=== PATIENT | female | born 1960 | race Caucasian/White ===

== ENCOUNTER 2016-05-23 09:28 | Observation (INO) | payer OTHER ==
[~2016-05-23 09:28] MED LIST: Buffered Lidocaine 1% SYR 3ML* 3 ML/SYR SYRINGE INTRADERM ONE; Buffered Lidocaine 1% SYR 3ML* 3 ML/SYR SYRINGE ONE; Heparin VIAL(*) 5000 UNITS/ML VIAL (FIVE THOUSAND) ONE; NS 0.9% 1000 ML* 1,000 ML IV SCH; ceFAZolin 2 GM PREMIX (*) 2 GM/50 ML BAG IVPB ONE
[2016-05-23] MEDS ORDERED: Midazolam* 1 MG/ML 2 ML VIAL (2 MG) ONE (11:19)
[2016-05-23] MEDS ORDERED: Ondansetron INJ* 2 MG/ML VIAL ONE (12:13)
[2016-05-23] MEDS ORDERED: Ketorolac INJ* 30 MG/ML 1 ML VIAL ONE (12:13)
[2016-05-23] MEDS ORDERED: Famotidine IV* 10 MG/ML 2 ML (20 mg) ONE (12:13)
[2016-05-23] MEDS ORDERED: Dexamethasone IV* 4 MG/ML 1 ML (4 MG) ONE ×2 (12:13→12:45)
[2016-05-23] MEDS ORDERED: Lidocaine 2% MPF* 2 ML VIAL ONE (12:13)
[2016-05-23] MEDS ORDERED: Propofol* 10 MG/ML 20 ML BTL IV PUSH ONE (12:13)
[2016-05-23] MEDS ORDERED: KETAMINE HCL* 50 MG/ML 10 ML VIAL ONE (12:14)
[2016-05-23] MEDS ORDERED: fentaNYL* 50 MCG/ML 2 ML VIAL (100 MCG VIAL) ONE ×3 (12:14→14:34)
[2016-05-23] MEDS ORDERED: HYDROmorphone INJ* 1 MG/ML CARPUJECT SYRINGE IV PRN ×2 (12:38→13:24)
[2016-05-23] MEDS ORDERED: Acetaminophen TAB* 325 MG PO PRN ×2 (12:38→13:24)
[2016-05-23] MEDS ORDERED: DiMENhydriNATE IV* 50 MG/ML VIAL IV PUSH PRN (12:38)
[2016-05-23] MEDS ORDERED: Ondansetron INJ* 2 MG/ML VIAL IV PRN ×2 (12:38→13:24)
[2016-05-23] MEDS ORDERED: Metoclopramide IV* 5 MG/ML 2 ML VIAL ONE (12:45)
[2016-05-23] MEDS ORDERED: HYDROmorphone INJ* 1 MG/ML CARPUJECT SYRINGE ONE (12:49)
[2016-05-23] MEDS ORDERED: oxyCODONE/Acetamin 5/325 MG* TAB PO PRN (13:24)
[2016-05-23] MEDS ORDERED: Ketorolac INJ* 30 MG/ML 1 ML VIAL IM PRN (13:24)
[2016-05-23] MEDS ORDERED: DiMENhydriNATE IV* 50 MG/ML VIAL ONE (13:38)
[2016-05-23] MEDS ORDERED: Heparin VIAL(*) 5000 UNITS/ML VIAL (FIVE THOUSAND) SUBCUT SCH (14:00)
[2016-05-23] MEDS: fentaNYL* 50 MCG/ML 2 ML VIAL (100 MCG VIAL) IV PRN ×4 (14:02→14:39)
[2016-05-23] MEDS: Heparin VIAL(*) 5000 UNITS/ML VIAL (FIVE THOUSAND) SUBCUT SCH (15:58)
[2016-05-23] MEDS: Docusate CAP* 100 MG PO SCH (19:48)
[2016-05-23] MEDS ORDERED: [UNRECOGNIZED DRUG - OTHER] PO SCH (22:30)
[2016-05-23] MEDS ORDERED: [UNRECOGNIZED DRUG - OTHER] PO PRN (22:31)
[2016-05-24] MEDS: POTASSIUM CITRATE PO SCH ×2 (00:10→09:00)
[2016-05-24] MEDS: Heparin VIAL(*) 5000 UNITS/ML VIAL (FIVE THOUSAND) SUBCUT SCH ×2 (00:11→09:00)
--- NOTE | 2016-05-24 01:21 | OP ---
DATE OF OPERATION: 05/23/16 - ROOM #338 DATE OF : 56 SURGEON: Bora Ochoa MD IT INSTRUCTOR: Marcie Villegas NP ANESTHESIOLOGIST: Dr. Gray. ANESTHESIA: General anesthetic. PRE-OP DIAGNOSIS: Left breast carcinoma. POST-OP DIAGNOSIS: Left breast carcinoma. OPERATIVE PROCEDURE: Left mastectomy. DESCRIPTION OF PROCEDURE: The patient was supine in the operating table. After adequate general anesthetic, compression stockings, Frederic Hugger warmer, and intravenous antibiotics, the left breast was prepped with antiseptic, draped in a sterile fashion. The left breast was almost totally infiltrated with tumor and edema and a clear area of skin in the inframammary fold and maybe 8 cm above the areola was chosen for the resection. Large elliptical incision was thus created. It was very vascular due to the inflammation. Inferior and superior flaps were created and the breast taken off in the subfascial plane. In the inferior edge of pectoralis, there was some adherence to the muscle, a little muscle was taken as well. Specimen was marked with the suture laterally and sent in formalin for pathologic evaluation. The inferior and superior flaps were mobilized additionally for additional length and a IGLESIA drain was placed through a lateral stab wound, sutured at the skin with 2-0 Prolene. The adipose and subcutaneum were approximated using 3-0 Vicryl. Note that hemostasis had been obtained using 3-0 Vicryl at various points as well as electrocautery for hemostasis. Once the subcutaneum was reapproximated with 3- 0 Vicryl, skin was closed with surgical clips, followed by a sterile dressing. She was awakened and brought to Recovery in good condition. No complications. Drain was Don Leach. Sponge and instrument counts correct. Estimated blood loss 150 mL. CC: Bora Ochoa MD; Dr. Montelongo; Dr. Garcia * [id number]/[facility] #: [id number] [facility]
[2016-05-24 08:02] VITALS: BP 104/63
[2016-05-24] MEDS: Docusate CAP* 100 MG PO SCH (09:05)
[2016-06-03 10:22] LABS: HER2 Fixative Formalin; HER2 Result Summary Equivocal; HER2 Tissue ID S17-317-D
--- NOTE | 2016-10-16 03:34 | DS ---
CC: Bora Ochoa MD; [facility] * DISCHARGE SUMMARY: DATE OF ADMISSION: 05/23/16 DATE OF DISCHARGE: 05/24/16 PRINCIPAL ADMITTING DIAGNOSIS: Carcinoma of the left breast. OPERATIVE PROCEDURE ON THIS ADMISSION: Left mastectomy. COMPLICATIONS: None. HOSPITAL COURSE: The patient came to the hospital, was taken to the operating room on 05/23/16 where she underwent a left mastectomy. She had placement of a drainage tube. She did well overnight and was discharged the next day, tolerating oral intake. Her pain control is good. She learned to manage the Don-Leach drain and will continue to do so at home and will follow up in the office in the near future to check the drain. Also, she will have discussion with Pathology when that becomes available. [id number]/[id number] #: [id number] MTDD
== END 2016-05-24 14:30 | disposition home or self-care (01) ==
LOC: OR 09:28 → SSU 15:38
PROVIDERS: ADMIT Surgery; ATTEND Surgery
PROC: 0HTU0ZZ Resection of Left Breast, Open Approach (ICD-10-PCS; principal; 2016-05-23 10:45)
DX: C50.912 Malignant neoplasm of unspecified site of left female breast (principal); Z88.5 Allergy status to narcotic agent; Z88.8 Allergy status to other drugs, medicaments and biological substances; Z79.899 Other long term (current) drug therapy
CPT/HCPCS: 88271; 88274; 88307; 88341; 88342; 96361; 96372; 96374; 96375; G0378; J0690; J1100; J1170; J1240; J1644; J1885; J2250; J2405; J2704; J2765; J3010

== ENCOUNTER 2016-08-22 06:27 | Inpatient (IN) | payer OTHER ==
--- NOTE | 2016-08-20 23:03 | HP ---
ADMISSION HISTORY AND PHYSICAL: DATE OF ADMISSION: 08/22/16 ATTENDING PHYSICIAN: Bora Ochoa MD (dictated by SANJAY Bell) CHIEF COMPLAINT: Malignant left pleural effusion; recurrent pericardial effusion. HISTORY OF PRESENT ILLNESS: This is a 55-year-old female with known metastatic breast cancer who in the past month or so had noted increased shortness of breath and was found to have a significant left pleural effusion. She underwent thoracentesis on 08/07/16, which was positive for malignant adenocarcinoma, 1.3 L was drained at that time with some initial improvement. Subsequently she has felt more dyspnea with exertion. She denies lightheadedness or syncope. She also underwent a repeat echocardiogram on 08/01 showing a moderate to large pericardial effusion which had increased from previous study and with evidence of hemodynamic significance (see separate report). The patient had been seen by Dr. Ochoa in the office on 08/13/16. He discussed with her the options for managing both the left pleural effusion and the recurrent pericardial effusion. After review of the indications risks, benefits, and alternatives as well as expected hospital stay, the patient would like to proceed to scheduled with left video- assisted thorascopic surgery with a pericardial window and placement of a PleurX catheter. She also understands the plan for mechanical pleurodesis and the need for inpatient hospital stay for initial chest tube management. PAST MEDICAL HISTORY: Breast cancer (the patient initially diagnosed in 2010 with a positive FNA of a right axillary lymph node as well as probable metastatic disease to cervical and supraclavicular nodes as well as to sternum and to the thoracic spine. She initially sought alternative therapies only, but over the past couple of years, has combined that with conventional chemotherapy including Taxotere, Herceptin, and Perjeta. Most recently she has been maintained on Kadcyla (I believe her last dose was 07/26/16). She has never had any surgery related to the right breast. She did undergo salvage mastectomy on the left in May of this year because of increasing problems with tumor related wound management. Margins were positive from that surgery and she has continued to have significant changes of the left chest wall including pain and likely multiple tumor deposits. She has also had significant left upper extremity edema for a number of years, for which she uses a compression sleeve. Her other past medical history is unremarkable. PAST SURGICAL HISTORY: Previous surgeries include left mastectomy as noted above, previous pericardial window by Dr. Ochoa. Appendectomy for ruptured appendicitis in 2009, subsequent exploratory laparoscopy for lysis of adhesions , bilateral bunionectomy, D and C remotely. CURRENT MEDICATIONS: Taken from list supplied by [facility]. 1. Ascorbic acid 1000 mg 2 tablets daily. 2. Bentonite elements once weekly. 3. Calm Plus Calcium 1 tablespoon daily (electrolyte mix). 4. Cannabis oil at h.s. and p.r.n. 5. Alida's web oil (hemp oil daily p.r.n.). 6. Cholecalciferol every other day. 7. Cod liver oil once daily when she remembers. 8. Coffee enema 2 doses daily. 9. Pancreatic enzymes 1 to 3 capsules t.i.d. 10. Iodine 10 mg daily p.r.n. 11. Liver flush once weekly. 12. Milk thistle 3 capsules b.i.d. 13. Pancreatic enzymes 5 times daily. 14. Potassium citrate 2 to 3 tablets daily 96 mg. 15. Probiotic b.i.d. 16. Salt and soda bath solution p.r.n. 17. Selenium once daily. 18. Thyroid tissue 3 capsules once daily. 19. [place] tail (mushroom supplement) 4 tablets b.i.d. 20. Wellness formula p.r.n. (the patient is instructed to hold supplements for 3 days preoperatively). DRUG ALLERGIES: ANTIHISTAMINES (severe headache and rash), HYDROCODONE ( dizziness), TRAMADOL (dizziness). She has also had some difficulties with anesthesia including both over sedation and nausea. FAMILY HISTORY: Noncontributory. SOCIAL HISTORY: The patient is accompanied by her . She denies use of tobacco. She does use cannabis and drinks a minimal amount of alcohol. REVIEW OF SYSTEMS: General: She complains of gradually increased fatigue and feels that the cancer continues to grow, particularly in her left chest. She states that her weight has been maintained about the same, though with some decreased appetite. Cardiovascular: No chest pain, no palpitations, no lightheadedness or syncope. Respiratory: Some dyspnea with exertion. No cough. GI: No problems reported. : No problems reported. CUSTOMER SUCCESS SPECIALIST: She has not had Pap smears in the last 5 or more years. No interval problems reported. Endocrine: No diabetes or thyroid dysfunction. PHYSICAL EXAMINATION GENERAL: Well nourished and fairly well-appearing female on today's exam. VITAL SIGNS: Height 64.5 inches, weight 126 pounds. Blood pressure 116/78, pulse 76, respirations 16. HEENT: Pupils equal, round, and reactive. EOMs intact. No conjunctival pallor. Oropharynx: Teeth in good repair. No intraoral lesions. NECK: No lymphadenopathy in the cervical or supraclavicular regions. LUNGS: Clear to auscultation in the upper russell. Left side is notable for decreased breath sounds and dullness to percussion in the lower one third to half. BREASTS: She is status post left breast mastectomy. Right breast not examined. HEART: Regular rate and rhythm. No murmur appreciated. ABDOMEN: Soft, nontender to palpation. No palpable masses or organomegaly. GENITALIA: Not done. RECTAL: Not done. EXTREMITIES: She does have moderate edema of the left upper extremity. No edema of the lower extremities. NEUROLOGIC: Grossly intact. SKIN: Generally warm and dry. She does have a generalized erythema over the left chest wall post mastectomy with palpable nodules likely related to tumor deposits. No other suspicious rashes or lesions. IMPRESSION: Malignant left pleural effusion; recurrent pericardial effusion. PLAN: Left VATS with pericardial window; placement of PleurX catheter. SANJAY ELIZABETH CC: Ruby Montelongo MD; [place] [id number]/[facility] #: [id number] [facility]
[~2016-08-22 06:27] MED LIST changes: -Buffered Lidocaine 1% SYR 3ML* 3 ML/SYR SYRINGE INTRADERM ONE; -Buffered Lidocaine 1% SYR 3ML* 3 ML/SYR SYRINGE ONE; +Buffered Lidocaine 1% SYRIN* 3 ML/SYR SYRINGE INTRADERM ONE; +Famotidine TAB* 20 MG PO ONE; -Heparin VIAL(*) 5000 UNITS/ML VIAL (FIVE THOUSAND) ONE; +Morphine INJ* 2 MG/ML 1 ML SYRINGE IV PRN; -NS 0.9% 1000 ML* 1,000 ML IV SCH; +PROCHLORPERAZINE INJ 5 MG/ML 2 ML VIAL IV PRN; -ceFAZolin 2 GM PREMIX (*) 2 GM/50 ML BAG IVPB ONE; +fentaNYL* 50 MCG/ML 2 ML VIAL (100 MCG VIAL) IV PRN
[2016-08-22] MEDS ORDERED: Scopolamine 1.5 mg* PATCH TRANSDERM SCH (06:30)
[2016-08-22] MEDS ORDERED: Scopolamine 1.5 mg* PATCH ONE (07:04)
[2016-08-22] MEDS ORDERED: Heparin VIAL(*) 5000 UNITS/ML VIAL (FIVE THOUSAND) ONE (07:04)
[2016-08-22] MEDS ORDERED: ceFAZolin 2 GM PREMIX(*) 2 GM/50 ML BAG IVPB ONE (07:04)
[2016-08-22] MEDS ORDERED: Famotidine TAB* 20 MG ONE (07:04)
[2016-08-22] MEDS ORDERED: Bupivacaine 0.25% EPI 200,000* 30 ML SDV ONE (07:19)
[2016-08-22] MEDS ORDERED: Lidocaine 1% INJ* 10 MG/ML 30 ML SDV ONE (07:23)
[2016-08-22] MEDS ORDERED: KETAMINE HCL* 50 MG/ML 10 ML VIAL ONE (07:25)
[2016-08-22] MEDS ORDERED: fentaNYL* 50 MCG/ML 5 ML VIAL (250 MCG VIAL) ONE (07:25)
[2016-08-22] MEDS ORDERED: Midazolam* 1 MG/ML 5 ML VIAL (5 MG) ONE (07:25)
[2016-08-22] MEDS ORDERED: Atracurium* 10 MG/ML 10 ML VIAL ONE (07:25)
[2016-08-22] MEDS ORDERED: Dexamethasone IV* 4 MG/ML 1 ML (4 MG) ONE (09:21)
[2016-08-22] MEDS ORDERED: Glycopyrrolate IV* 0.2 MG/ML 1 ML VIAL ONE (09:21)
[2016-08-22] MEDS ORDERED: Ondansetron INJ* 2 MG/ML VIAL ONE (09:21)
[2016-08-22] MEDS ORDERED: Lidocaine 2% PF * 5 ML VIAL ONE (09:21)
[2016-08-22] MEDS ORDERED: EPHEDrine (Pressors)* 50 MG/ML VIAL ONE (09:21)
[2016-08-22] MEDS ORDERED: Phenylephrine INJ* 10 MG/ML 1 ML VIAL (10 MG) ONE (09:21)
[2016-08-22] MEDS ORDERED: Flumazenil* 0.1 MG/ML 5 ML MDV ONE (10:08)
[2016-08-22] MEDS ORDERED: HYDROcodone/ACETAMIN 5-325 MG* 1 TAB PO PRN (10:18)
[2016-08-22] MEDS ORDERED: HYDROmorphone* 1 MG/ML 1 ML SYR IV PRN (10:18)
--- NOTE | 2016-08-22 11:13 | RAD ---
Indication: History of LEFT breast carcinoma. Post LEFT thoracentesis August 07, 2016. Assess pleural effusion. Comparison: August 12, 2016 chest radiograph and August 07, 2016 PET/CT. Technique: Upright AP 1030 hours Report: Moderate RIGHT and small LEFT predominant subpulmonic pleural effusions. Interval increase on the RIGHT and decreased on the LEFT compared with the August 12, 2016 exam. On the RIGHT there is suggestion of extension of pleural fluid into the major fissure. 2 LEFT chest tubes in place with the tips at the apex. No significant pneumothorax evident. Opacity at the RIGHT mid to lower lung zone new compared with the prior exam representing compressive atelectasis however inflammatory infiltrate is not excluded. Enlarged cardio paracardial silhouette without significant interval change with previous PET/CT documenting pericardial effusion. Unremarkable central pulmonary vasculature. Tip of RIGHT chest port at level of the superior vena cava. IMPRESSION: 1. Interval decrease in LEFT pleural fluid. 2. Interval increase in RIGHT pleural fluid. 3. Opacity at the RIGHT mid to lower lung zone new compared with the prior exam representing compressive atelectasis however inflammatory infiltrate is not excluded. 4. Persistent stigmata of pericardial effusion.
[2016-08-22] MEDS: Heparin VIAL(*) 5000 UNITS/ML VIAL (FIVE THOUSAND) SUBCUT SCH ×2 (12:54→22:35)
[2016-08-22] MEDS: Ketorolac INJ* 30 MG/ML 1 ML VIAL IV SCH ×3 (12:54→22:40)
[2016-08-22] MEDS: Ondansetron INJ* 2 MG/ML VIAL IV PRN ×3 (13:04→20:50)
--- NOTE | 2016-08-22 14:18 | CONSULT ---
Subjective Date of Service: 08/22/16 Interval History: Admission Date: 08/22/16 Provider: Bora Ochoa MD PMD: Dr. Montelongo CHIEF COMPLAINT: Malignant left pleural effusion; recurrent pericardial effusion. Reason for consult: Post-pericardial window HISTORY OF PRESENT ILLNESS: Rochelle Servin is a 55-year-old woman with known metastatic breast cancer, history of pericardial window with recurrent pericardial effusion has noted increased dyspnea and chest tightness over last month. TTE 08/01/2016 showed moderate- large pericardial effusion with high level echocardiographic evidence of hemodynamic significance and a new left pleural effusion. She underwent thoracentesis on 08/07/16, which was positive for malignant adenocarcinoma, 1.3 L was drained at that time with some initial improvement although dyspnea returned. No syncope or palpitations. Has chest pain related to malignancy. Patient is now s/p VATS left sided earlier today with pericardectomy d/w Dr Ochoa removed 400 cc of fluid, pathology has returned as metastatic adenocarcinoma. PAST MEDICAL HISTORY: Metastatic breast cancer PAST SURGICAL HISTORY: Previous surgeries include left mastectomy previous pericardial window by Dr. Ochoa. appendectomy for ruptured appendicitis in 2008, subsequent exploratory laparoscopy for lysis of adhesions, CURRENT MEDICATIONS: 1. Ascorbic acid 1000 mg 2 tablets daily. 2. Bentonite elements once weekly. 3. Calm Plus Calcium 1 tablespoon daily (electrolyte mix). 4. Cannabis oil at h.s. and p.r.n. 5. Alida's web oil (hemp oil daily p.r.n.). 6. Cholecalciferol every other day. 7. Cod liver oil once daily when she remembers. 8. Coffee enema 2 doses daily. 9. Pancreatic enzymes 1 to 3 capsules t.i.d. 10. Iodine 10 mg daily p.r.n. 11. Liver flush once weekly. 12. Milk thistle 3 capsules b.i.d. 13. Pancreatic enzymes 5 times daily. 14. Potassium citrate 2 to 3 tablets daily 96 mg. 15. Probiotic b.i.d. 16. Salt and soda bath solution p.r.n. 17. Selenium once daily. 18. Thyroid tissue 3 capsules once daily. 19. [place] tail (mushroom supplement) 4 tablets b.i.d. 20. Wellness formula p.r.n. (the patient is instructed to hold supplements for 3 days preoperatively). DRUG ALLERGIES: ANTIHISTAMINES (severe headache and rash), HYDROCODONE ( dizziness), TRAMADOL (dizziness). She has also had some difficulties with anesthesia including both over sedation and nausea. FAMILY HISTORY: Noncontributory. SOCIAL HISTORY: The patient is accompanied by her . She denies use of tobacco. She does use cannabis and drinks a minimal amount of alcohol. Medications Active Medications: Hydrocodone Bitart/Acetaminophen ([place] 5-325 Tab*) 1 tab PO Q4H PRN PRN Reason: PAIN - MODERATE Docusate Sodium (Colace Cap*) 100 mg PO BID [facility] Heparin Sodium (Porcine) (Heparin Vial(*)) 5,000 units SUBCUT Q8HR [facility] Last Admin: 08/22/16 12:54 Dose: 5,000 units Hydromorphone HCl (Dilaudid Iv*) 0.5 mg IV Q1H PRN PRN Reason: PAIN - SEVERE Lactated Ringer's (Lactated Ringers 1000 Ml Bag*) 1,000 mls @ 75 mls/hr IV .per rate [facility] Last Admin: 08/22/16 12:43 Dose: 75 mls/hr Ketorolac Tromethamine (Toradol Inj*) 30 mg IV Q6H [facility] Stop: 08/24/16 10:21 Last Admin: 08/22/16 12:54 Dose: 30 mg Non-Formulary Medication (Thyroid Tab (Nf)) 90 mg PO QAM [facility] Ondansetron HCl (Zofran Inj*) 4 mg IV Q4H PRN PRN Reason: NAUSEA/VOMITING Last Admin: 08/22/16 13:04 Dose: 4 mg Pharmacy Profile Note (Scopolomine Patch Remove*) 1 note PATCH OFF 0630 ONE Stop: 08/24/16 06:31 Scopolamine (Transderm-Scop 1.5 Mg Patch*) 1 patch TRANSDERM Q72H [facility] Stop: 08/24/16 06:30 Last Admin: 08/22/16 07:40 Dose: 1 patch Home Medications: Ascorbic Acid TAB* [Vitamin C TAB*] 2,000 mg PO SEE INSTRUCTIONS 01/27/13 [ History Confirmed 08/22/16] Selenium 200 mcg PO QAM 01/27/13 [History Confirmed 08/22/16] Cod Liver Oil 5000-500 Unit/5Ml 0.5 teasp PO SEE INSTRUCTIONS 09/06/13 [History Confirmed 08/22/16] Enema 1 bag AR DAILY 09/06/13 [History Confirmed 08/22/16] Digestive Enzymes [Digestive Enzyme] 1 cap PO SEE INSTRUCTIONS 09/09/14 [ History Confirmed 08/22/16] Iodine Strong (Lugol's) (Bulk) [Iodine Strong] 1 luan XX DAILY 09/09/14 [History Confirmed 08/22/16] Milk Thistle (Silybum Marianum [Milk Thistle] 3 cap PO BID 09/09/14 [History Confirmed 08/22/16] Probiotic Product [Acidophilus] 1 cap PO BID 09/09/14 [History Confirmed ] Thyroid TAB (NF) [Thyroid TAB 90 MG(NF)] 90 mg PO QAM 09/09/14 [History Confirmed 08/22/16] Potassium Citrate ER 2 - 3 tab PO BID 08/06/16 [History Confirmed 08/22/16] Calcium 500+D 500-200 mg-Unit 2 cap PO QPM 08/20/16 [History Confirmed 08/22/16] Calcium Magnesium Powder 1 teasp PO QPM 08/20/16 [History] Cannabis Oil 08/20/16 [History] Hemp Oil 1 ml PO SEE INSTRUCTIONS 08/20/16 [History] [place] Tail Mushroom 4 cap PO BID 08/20/16 [History] Review of Systems - Measurements Intake and Output: Intake and Output Last 24 Hours 08/20/16 08/21/16 08/22/16 08/23/16 06:59 06:59 06:59 06:59 Intake Total 2000 Output Total 85 Balance 191 Weight 126 lb 125 lb 3.561 oz Intake: IV Fluids 1999 LR 2000 Output: Chest Tube #1 85 - Review of Systems Review of Systems Statement: Patient seen in post-operative state in ICU 2 and is still under the effect of anesthesia and is unable to provide a full ROS. She states her pain is controlled, not currently nauseated and breathing ok. Objective Vital Signs: Temp Pulse Resp BP Pulse Ox 97.1 F 85 17 109/54 96 08/22/16 11:15 08/22/16 12:15 08/22/16 12:15 08/22/16 12:15 08/22/16 12:15 Appearance: frail, debilitated Ears/Nose/Mouth/Throat: Clear Oropharnyx Neck: NL Appearance and Movements; NL JVP, Trachea Midline Respiratory: - - poor inspiratory effect, left surgical wound intact, no abnormal breath sounds Cardiovascular: - - RRR, very loud pericardial friction rub Abdominal: NL Sounds; No Tenderness; No Distention Extremities: No Clubbing, Cyanosis, - - left upper extremity edema Neurological: Alert and Oriented x 3 Assessment/Plan Rochelle Servin is a 55 year old woman with advanced breast cancer, prior substernal pericardial window s/p surgery earlier today left VATS/ pericardiectomy for malignant pleural effusion/recurrent tamponade pathology from pericardial fluid also consistent with metastatic adenocarcinoma. - She has a very loud pericardial friction rub on exam, agree with around the clock regularly scheduled NSAIDs/toradol - Will arrange limited TTE for tomorrow to re-evaluate pericardial space Thank you for allowing me to participate in the cardiovascular care of this patient. Please do not hesitate to contact me with questions or concerns.
[2016-08-22] MEDS: Docusate CAP* 100 MG PO SCH (22:25)
--- NOTE | 2016-08-23 03:35 | OP ---
DATE OF OPERATION: 08/22/16 - ROOM #ICU-02 DATE OF : 56 SURGEON: Bora Ochoa MD ANESTHESIOLOGIST: Dr. La. ANESTHESIA: General anesthetic, local infiltration. PREOPERATIVE DIAGNOSIS: Malignant pleural effusion with pericardial effusion secondary to breast carcinoma. POSTOPERATIVE DIAGNOSIS: Malignant pleural effusion with pericardial effusion secondary to breast carcinoma. OPERATIVE PROCEDURE: Left video thoracoscopy with pericardial window and pleurodesis and placement of PleurX catheter. DESCRIPTION OF PROCEDURE: The patient was supine on the operative table. After adequate general anesthetic, compression stockings, Frederic Hugger warmer and intravenous antibiotics, she was placed in the lateral decubitus position on the rosado bag with axillary roll and pressure points appropriately padded and protected and she was secured to the table. Double lumen intubation was checked with the scope and showed good positioning. The left chest was prepped with antiseptic and draped in a sterile fashion. Local infiltrative anesthesia was administered and approximately 1.5 cm incision was created and Thoracoport was placed. Inspection revealed pleural fluid, approximately 1200 mL suctioned out. Additional cannulae, a 5 mm posterior to this and superior to this were placed under vision through small stab wounds. The incisions were somewhat posterior due to the location of the skin tumor. The pericardium was identified and an endoscopic needle was used to drain 20 mL of bloody fluid from the pericardium. This was sent for cytology. The pericardium was picked up and incised and scissors used to take approximately 3 x 5 cm piece of pericardium. This was sent for pathologic evaluation. Irrigation and suctioning carried out in the pleural space. Mechanical pleurodesis was carried out using a 4 x 4 gauze which was retrieved afterwards. A 28-Austrian chest tube was placed through the larger incision and positioned towards the apex and sutured at the skin. A PleurX catheter was placed to the posterior incision and tunneled out through a separate incision and also directed up into the chest cavity. This was confirmed under visualization and closure of the incision was accomplished using 5- 0 Vicryl followed by Steri-Strips. 3-0 Prolene was used for PleurX exit site, followed by bulky gauze dressing. She was attached to the Pleur-Evac. Awakened and brought to Recovery in good condition. No complications. Drains were PleurX and 20-Austrian chest tubes. Sponge and instrument counts correct. Estimated blood loss less than 100 mL. CC: Dr. Ruby Montelongo; Dr. Josef Garcia* [id number]/[facility] #: [id number] [facility]
[2016-08-23] MEDS: Ketorolac INJ* 30 MG/ML 1 ML VIAL IV SCH ×4 (05:48→22:32)
[2016-08-23] MEDS: Heparin VIAL(*) 5000 UNITS/ML VIAL (FIVE THOUSAND) SUBCUT SCH ×3 (05:49→22:31)
[2016-08-23] MEDS: Ondansetron INJ* 2 MG/ML VIAL IV PRN (05:49)
[2016-08-23] MEDS: Docusate CAP* 100 MG PO SCH ×2 (10:15→22:30)
[2016-08-23] MEDS: [UNRECOGNIZED DRUG - OTHER] PO SCH (10:17)
--- NOTE | 2016-08-23 11:37 | ECHO ---
Patient: CANDELARIA BRICENO [facility] Rec#: [id number] : 1960 Date: 08/23/2016 Age: 55y Height: 162.56 cm / 64.0 in Weight: 57.61 kg / 127.0 lbs Sex: F BSA: 1.61 Room#: ICU-2 Admit Date#: 08/22/2016 Type: Inpatient Referring: Mike Leger DO Reading: Mike Leger DO Roving Court Reporter: Janet Kowalski Roving Court Reporter: Rosalina Caraballo RN RDCS CC: Ruby Montelongo MD Transthoracic Echocardiogram Indication: Pericardial Effusion BP: 113/64 HR: 87 Rhythm: NSR Findings History: Metastatic breast cancer, left mastectomy, thoracentesis 08/07/16 with positive malignant adenocarcinoma, s/p left VATS/ pericardiectomy, recurrent tamponade pathology. This is a LIMITED study to evaluate pericardial effusion. Technical Comments: The study was technically limited due to the patient's inability to lay in the left lateral decubitus position. Apical imaging limited by surgical dressing. Completed at 1042. Left Ventricle: There is normal left ventricular systolic function. The estimated ejection fraction is 60-65%. 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 Right Ventricle: The right ventricle is slightly dilated. The right ventricular global systolic function is mildly reduced. Tricuspid Valve: The tricuspid valve leaflets are normal. There is mild to moderate tricuspid regurgitation. There is evidence of mild pulmonary hypertension. Pericardium: There are no signs of significant hemodynamic compromise. The pericardial effusion is seen adjacent to the right ventricle. Venous: The inferior vena cava is dilated. There is less than 50% respiratory change in the inferior vena cava dimension. Conclusions There is normal left ventricular systolic function. The estimated ejection fraction is 60-65%. 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 The right ventricular global systolic function is mildly reduced. There is residual small sized pericardial space thickening especially adjacent to the right ventricle. Compared to prior study from 08/01/2016, the large pericardial effusion is no longer appreciated Measurements Name Value Normal Range MV E-wave Vmax 0.7 m/sec - MV deceleration time 194 msec - MV A-wave Vmax 0.5 m/sec - MV E:A ratio 1.4 ratio - Name Value Normal Range TR Vmax 2.3 m/sec - TR peak gradient 21 mmHg - RAP 15 mmHg - RVSP 36 mmHg - IVC diameter 2.4 cm -
--- NOTE | 2016-08-23 13:47 | PN ---
Subjective Date of Service: 08/23/16 Interval History: 08/23/16 f/u tamponade, pericardial window Patient feels better today. Pain controlled, no dyspnea Limited TTE this AM with pericardial space thickening, no recurrent effusion No rub today Chest tube in place Medications Active Medications: Hydrocodone Bitart/Acetaminophen (Viburnum 5-325 Tab*) 1 tab PO Q4H PRN PRN Reason: PAIN - MODERATE Docusate Sodium (Colace Cap*) 100 mg PO BID [facility] Last Admin: 08/23/16 10:15 Dose: 100 mg Heparin Sodium (Porcine) (Heparin Vial(*)) 5,000 units SUBCUT Q8HR [facility] Last Admin: 08/23/16 05:49 Dose: 5,000 units Hydromorphone HCl (Dilaudid Iv*) 0.5 mg IV Q1H PRN PRN Reason: PAIN - SEVERE Lactated Ringer's (Lactated Ringers 1000 Ml Bag*) 1,000 mls @ 75 mls/hr IV .per rate [facility] Last Admin: 08/22/16 20:29 Dose: 75 mls/hr Ketorolac Tromethamine (Toradol Inj*) 30 mg IV Q6H [facility] Stop: 08/24/16 10:21 Last Admin: 08/23/16 11:35 Dose: 30 mg Pto: Thyroid With Liver 500mg [30mg Of Raw Thyroid Base] 3 dose PO QAM [facility] Last Admin: 08/23/16 10:17 Dose: Not Given Ondansetron HCl (Zofran Inj*) 4 mg IV Q4H PRN PRN Reason: NAUSEA/VOMITING Last Admin: 08/23/16 05:49 Dose: 4 mg Pharmacy Profile Note (Scopolomine Patch Remove*) 1 note PATCH OFF 0630 ONE Stop: 08/24/16 06:31 Scopolamine (Transderm-Scop 1.5 Mg Patch*) 1 patch TRANSDERM Q72H [facility] Stop: 08/24/16 06:30 Last Admin: 08/22/16 07:40 Dose: 1 patch Objective Vital Signs: Temp Pulse Resp BP Pulse Ox 98.6 F 85 19 103/55 95 08/23/16 12:00 08/23/16 12:00 08/23/16 12:00 08/23/16 03:22 08/23/16 12:00 Appearance: frail, debilitated, pleasant Ears/Nose/Mouth/Throat: Clear Oropharnyx Neck: NL Appearance and Movements; NL JVP, Trachea Midline Respiratory: Symmetrical Chest Expansion and Respiratory Effort, - Cardiovascular: - - RRR, no rub heard today Abdominal: NL Sounds; No Tenderness; No Distention Extremities: No Clubbing, Cyanosis, - - left upper extremity edema Neurological: Alert and Oriented x 3 Assessment/Plan Rochelle Servin is a 55 year old woman with advanced breast cancer, prior substernal pericardial window s/p surgery earlier today left VATS/ pericardiectomy for malignant pleural effusion/recurrent tamponade pathology from pericardial fluid also consistent with metastatic adenocarcinoma. Has chest tube, plan for terminologist to drain lung and pericardial space via pleural space. Limited TTE post-op 08/23/2016 no recurrence of significant pericardial fluid. - Would keep NSAID's empirically as part of regimen at least short term if no contraindication (i.e. after current toradol regimen completed do ibuprofen 600 mg PO BID x 1 week then 600 mg daily for a week or similar arrangement with other nsaid's). I do not think she would benefit from colchicine or steroids. - Ok to transfer to [facility] Thank you for allowing me to participate in the cardiovascular care of this patient. Please do not hesitate to contact cardiology service with questions or concerns.
[2016-08-24] MEDS: Ketorolac INJ* 30 MG/ML 1 ML VIAL IV SCH (06:19)
[2016-08-24] MEDS: Heparin VIAL(*) 5000 UNITS/ML VIAL (FIVE THOUSAND) SUBCUT SCH ×3 (06:22→22:39)
[2016-08-24] MEDS ORDERED: Scopolomine PATCH Remove* 1 NOTE MISC PATCH OFF ONE (06:30)
[2016-08-24] MEDS: Docusate CAP* 100 MG PO SCH ×2 (09:18→22:38)
[2016-08-24] MEDS: [UNRECOGNIZED DRUG - OTHER] PO SCH (09:18)
--- NOTE | 2016-08-24 10:48 | RAD ---
HISTORY: Status post VATS COMPARISONS: August 22, 2016 VIEWS: 2: Frontal dual-energy and lateral views of the chest. FINDINGS: CARDIOMEDIASTINAL SILHOUETTE: The cardiomediastinal silhouette is normal. BILLY: The billy are normal. PLEURA: There is a small right pleural effusion. 2 left-sided chest tubes are noted. There is no appreciable pneumothorax. LUNG PARENCHYMA: There is patchy alveolar opacification of left midlung. ABDOMEN: The upper abdomen is clear. There is no subphrenic gas. BONES AND SOFT TISSUES: No bone or soft tissue abnormalities are noted. OTHER: A right-sided chest port is noted from a subclavian with the tip overlying the superior vena cava. IMPRESSION: 1. LEFT-SIDED CHEST TUBES. NO APPRECIABLE PNEUMOTHORAX. 2. SMALL RIGHT PLEURAL EFFUSION. 3. PATCHY AIRSPACE DISEASE OF THE LEFT LUNG
[2016-08-24] MEDS ORDERED: Ibuprofen TAB* 600 MG ONE (16:16)
[2016-08-24] MEDS ORDERED: Acetaminophen TAB* 325 MG PO PRN (16:33)
[2016-08-24] MEDS: Ibuprofen TAB* 600 MG PO PRN (22:38)
[2016-08-25] MEDS: Heparin VIAL(*) 5000 UNITS/ML VIAL (FIVE THOUSAND) SUBCUT SCH ×3 (05:37→21:10)
[2016-08-25] MEDS: Docusate CAP* 100 MG PO SCH ×2 (08:36→19:59)
[2016-08-25] MEDS: Ibuprofen TAB* 600 MG PO PRN ×2 (08:36→19:59)
[2016-08-25] MEDS: [UNRECOGNIZED DRUG - OTHER] PO SCH (08:37)
[2016-08-26] MEDS: Ibuprofen TAB* 600 MG PO PRN (06:15)
[2016-08-26] MEDS: Heparin VIAL(*) 5000 UNITS/ML VIAL (FIVE THOUSAND) SUBCUT SCH (06:15)
[2016-08-26] MEDS: [UNRECOGNIZED DRUG - OTHER] PO SCH (08:47)
[2016-08-26] MEDS: Docusate CAP* 100 MG PO SCH (08:47)
[2016-08-26 12:09] VITALS: BP 104/78
--- NOTE | 2016-08-27 01:05 | DS ---
CC: Bora Ochoa MD; [facility]; Ruby Montelongo MD; Mike Leger DO DISCHARGE SUMMARY: DATE OF ADMISSION: 08/22/16, with surgery the same day. DATE OF DISCHARGE: 08/26/16 PRINCIPAL ADMITTING DIAGNOSIS: Metastatic breast carcinoma with pleural and pericardial effusions. OPERATIVE PROCEDURE ON THIS ADMISSION: Left video thoracoscopy with pericardial window and aircraft ordnance systems mechanic al pleurodesis. COMPLICATIONS: None. HOSPITAL COURSE: The patient is a 55-year-old with known metastatic breast carcinoma with malignant pleural and pericardial effusion, taken to the operating room on 08/22/16,where she underwent left video thoracoscopy with creation of pleural and pericardial window and mechanical pleurodesis. She had an uneventful postoperative recovery with gradual improvement in pain control and in respiratory function. The chest tube drainage decreased very nicely and the chest tube was ultimately removed on postop day 4. The PleurX catheter remained in place and was patent. The chest tube dressing juan uld remain in place for 48 hours and I did instruct her of this. I did talk to [facility] and they will see her in the office in the next 2 days for PleurX training and the patient has been maintaining her pain relief with ibuprofen and will not need anything stronger than that for pain at home, so she is discharged home with instructions and will follow up in our o ffice in about a week. [id number]/[facility] #: [id number]
== END 2016-08-26 14:30 | disposition home or self-care (01) | DRG 121 ==
LOC: AA 06:27 → ICU 11:50 → SSU 08-23 16:30
PROVIDERS: ADMIT Surgery; ATTEND Surgery
PROC: 0W9D4ZZ Drainage of Pericardial Cavity, Percutaneous Endoscopic Approach (ICD-10-PCS; 2016-08-22)
PROC: 0W9 Anatomical Regions, General, Drainage (ICD-10-PCS; 2016-08-22)
PROC: 0B5P4ZZ Destruction of Left Pleura, Percutaneous Endoscopic Approach (ICD-10-PCS; principal; 2016-08-22 07:45)
PROC: 0W9B30Z Drainage of Left Pleural Cavity with Drainage Device, Percutaneous Approach (ICD-10-PCS; 2016-08-22 07:45)
PROC: 0W9B30Z Drainage of Left Pleural Cavity with Drainage Device, Percutaneous Approach (ICD-10-PCS; 2016-08-22 07:45)
DX: C78.2 Secondary malignant neoplasm of pleura (principal); C79.89 Secondary malignant neoplasm of other specified sites; J91.0 Malignant pleural effusion; I31.3 Pericardial effusion (noninflammatory); C50.912 Malignant neoplasm of unspecified site of left female breast; Z88.6 Allergy status to analgesic agent; Z88.8 Allergy status to other drugs, medicaments and biological substances; Z87.891 Personal history of nicotine dependence
CPT/HCPCS: 71010; 71020; 87641; 88112; 88304; 88305; 88341; 88342; 93005; 93308; 94760; A9270-GY; J0690; J1100; J1644; J1885; J2001; J2250; J2405; J3010

== ENCOUNTER 2016-09-15 08:13 | Emergency (ER) | payer OTHER ==
[2016-09-15 08:23] VITALS: BP 120/78
[2016-09-15 09:34] LABS: Hematocrit 40 % (35-47); Hemoglobin 13.2 g/dl (12.0-16.0); Mean Corpuscular HGB Conc 33 g/dl (31-36); Mean Corpuscular Hemoglobin 26 pg (27-31); Mean Corpuscular Volume 81 fL (80-97); Mean Platelet Volume 7 um3 (7.4-10.4); Red Cell Distribution Width 18 % (10.5-15); White Blood Count 10.1 10^3/ul (3.5-10.8)
[2016-09-15 09:48] LABS: Albumin 3.4 g/dL (3.2-5.2); BUN/Creatinine Ratio 12.9 (8-20); Calcium 9.2 mg/dL (8.6-10.3); EGFR African American 127.6 (>60); EGFR Non-African American 99.2 (>60); Globulin 3.2 g/dL (2-4); Magnesium 1.7 mg/dL (1.9-2.7); Potassium 3.8 mmol/L (3.5-5.0); Total Bilirubin 0.7 mg/dL (0.2-1.0); Total Protein 6.6 g/dL (6.4-8.9)
--- NOTE | 2016-09-15 12:51 | ED ---
I, Oh,Soohyun, scribed for Lake Barton MD on 09/15/16 at 0845 . HPI Chest Pain - HPI Summary HPI Summary: This 55 y/o female presents to ED for gradually worsening chest pressure since 6 days ago. PMHx is significant for breast CA mets to lymphatic and T-spine, pericardial effusion and pleural effusion with pericardium window and chest port in place. Pt has last drainage 6 days ago and another pending drainage tomorrow, but decided to visit ED today when she became concerned with chest pain. Lying down and deep breath make the pain worse. Pt states the pain is similar to what she felt just prior to drainage last week. Pt is currently on compazine and Zofran 4 mg. R/b/a of pain medications and CXR are discussed. Plan of care is discussed, but pt is reluctant to have CXR or pain medications due to her n/v with - History of Current Complaint Chief Complaint: EDChestWallPain Time Seen by Provider: 09/15/16 08:27 Hx Obtained From: Patient, Family/Town Clerk, Medical Records Timing: Constant Pain Intensity: 9 Pain Scale Used: 0-10 Numeric Chest Pain Location: Diffuse Chest Pain Radiates: No Character: Pressure/Squeezing Aggravating Factor(s): Deep Breaths, Recumbent Position Alleviating Factor(s): Position - upright Associated Signs and Symptoms: Positive: Chest Pain. Negative: Shortness of Breath, Fever - Additional Pertinent History Primary Care Physician: [id number] - Allergy/Home Medications Allergies/Adverse Reactions: Allergies Allergy/AdvReac Type Severity Reaction Status Date / Time Antihistamines, Allergy Severe Rash Verified 08/22/16 07:12 Diphenhydramine-typ Tramadol AdvReac Intermediate Vomiting Verified 08/22/16 07:12 narcotics AdvReac Intermediate Nausea And Uncoded 08/22/16 07:12 Vomiting PMH/Surg Hx/FS Hx/Imm Hx Endocrine/Hematology History: Reports: Hx Thyroid Disease - STATES BLOOD WORK SHOWS SLIGHTLY OFF, TAKES OTC SUPPLEMENT Denies: Hx Diabetes Cardiovascular History: Reports: Other Cardiovascular Problems/Disorders - PERICARDIUM WINDOW: TO DRAIN EXCESS FLUID Denies: Hx Hypertension, Hx Pacemaker/ICD Respiratory History: Comment Only: Other Respiratory Problems/Disorders - FLUID REMOVED FROM LEFT LUNG X2 WEEKS AGO GI History: Reports: Hx Irritable Bowel - FEELS SHE HAS IBS, HAS NOT BEEN DX BY A PHYSICIAN, Other GI Disorders - DOES COFFEE ENEMAS DAILY, appedectomy History: Reports: Other Problems/Disorders - many UTI's Denies: Hx Renal Disease - ONE KIDNEY IS SMALLER THAN THE OTHER Musculoskeletal History: Reports: Hx Arthritis, Other Musculoskeletal History - USES LOTS OF SUPPLEMENTS TO PREVENT CRAMPING OF MUSCLES Sensory History: Denies: Hx Cataracts, Hx Contacts or Glasses, Hx Glaucoma, Hx Hearing Aid Opthamlomology History: Denies: Hx Cataracts, Hx Contacts or Glasses, Hx Glaucoma Neurological History: Reports: Hx Headaches - R/T CAFF[place], Hx Migraine - CAUSED BY ANTIHYSTAMINES, Other Neuro Impairments/Disorders - neuropathy, FINGERS/FEET Psychiatric History: Reports: Hx Anxiety - SITUATIONAL, Hx Depression Denies: Hx Panic Disorder - Cancer History Cancer Type, Location and Year: Stage 4 Breast cancer - 03/2011- under treatment with Dr Radha Daly Chemotherapy: Yes Hx Radiation Therapy: No - Surgical History Surgery Procedure, Year, and Place: 2008 RUPTURED Appendectomy [facility] [place]. 2011 POWER PORT RT SIDE [facility] [place]. 2012 EXPLORATORY FOR PAIN AFTER APPY [facility] [place]. 1979 BUNIONECTOMY [place]. LEFT KNEE ATHROSCOPY. D&C,. RT BREAST WOUND ,. 2014 PERICARDIAL WINDOW TO PERITONIUM Hx Anesthesia Reactions: Yes - ALWAYS GET N&V, DIZZY Infectious Disease History: No Infectious Disease History: Denies: Hx of Known/Suspected MRSA, History Other Infectious Disease, Traveled Outside the in Last 30 Days - Family History Known Family History: Negative: Other - negative malignant hyperthermia or adverse anesthesia reaction - Social History Alcohol Use: Occasionally Substance Use Type: Reports: Marijuana Substance Use Comment - Amount & Last Used: MOST NIGHTS SMOKES MARIJANA TO RELIEVE PAIN, WILL REFRAIN 2-3 NIGHTS PREOP Hx Tobacco Use: Yes Smoking Status (MU): Former Smoker Type: Cigarettes Amount Used/How Often: 1979 2 YRS 1PPD Length of Time of Smoking/Using Tobacco: 3 years Have You Smoked in the Last Year: No Review of Systems Negative: Fever Positive: Chest Pain Negative: Shortness Of Breath Positive: Nausea Positive: Rash - secondary to fentanyl patch per pt All Other Systems Reviewed And Are Negative: Yes Physical Exam - Summary Physical Exam Summary: The patient is well-nourished in no acute distress and in no acute pain. The skin is warm and dry and skin color reflects adequate perfusion. Erythema across left anterior chest. S/P left lumpectomy. HEENT: The head is normocephalic and atraumatic. The pupils are equal and reactive. The conjunctivae are clear and without drainage. Nares are patent and without drainage. Mouth reveals moist mucous membranes and the throat is without erythema and exudate. The external ears are intact. The ear canals are patent and without drainage. The tympanic membranes are intact. Neck is supple with full range of motion and non-tender. There are no carotid bruits. There is no neck vein distension. Respiratory: Chest is non-tender. Lungs are clear to auscultation and breath sounds are decreased. Cardiovascular: Hear is regular rate and rhythm. There is no murmur or rub auscultated. There is no peripheral edema and pulses are symmetrical and equal. Abdomen: The abdomen is soft and non-tender. There are normal bowel sounds heard in all four quadrants and there is no organomegaly palpated. Musculoskeletal: There is no back pain noted. Extremities are non-tender with full range of motion. There is good capillary refill. There is no peripheral edema or calf tenderness elicited. Neurological: Patient is alert and oriented to person, place and time. The patient has symmetrical motor strength in all four extremities. Cranial nerves are grossly intact. Deep tendon reflexes are symmetrical and equal in all four extremities. Psychiatric: The patient has an appropriate affect and does not exhibit any anxiety or depression. Triage Information Reviewed: Yes Vital Signs On Initial Exam: Initial Vitals Temp Pulse Resp BP Pulse Ox 99.3 F 120 20 120/78 94 09/15/16 08:19 09/15/16 08:19 09/15/16 08:19 09/15/16 08:19 09/15/16 08:19 Vital Signs Reviewed: Yes Procedures - Procedure Summary Procedure Summary: 500 cc removed from left chest PleurX by Dr. Ochoa in ED. Pt tolerated the procedure well, and CP is alleviated after the procedure. Diagnostics - Vital Signs Vital Signs Temp Pulse Resp BP Pulse Ox 09/15/16 08:19 99.3 F 120 20 120/78 94 - Laboratory Lab Results: Lab Results 09/15/16 09/15/16 Range/Units 09:22 09:22 WBC 10.1 (3.5-10.8) 10^3/ul RBC 5.00 (4.0-5.4) 10^6/ul Hgb 13.2 (12.0-16.0) g/dl Hct 40 (35-47) % MCV 81 (80-97) fL MCH 26 L (27-31) pg MCHC 33 (31-36) g/dl RDW 18 H (10.5-15) % Plt Count 248 (150-450) 10^3/ul MPV 7 L (7.4-10.4) um3 Neut % (Auto) 80.2 (38-83) % Lymph % (Auto) 10.4 L (25-47) % [place] % (Auto) 8.7 (1-9) % Eos % (Auto) 0.2 (0-6) % Baso % (Auto) 0.5 (0-2) % Absolute Neuts (auto) 8.1 H (1.5-7.7) 10^3/ul Absolute Lymphs (auto) 1.1 (1.0-4.8) 10^3/ul Absolute Monos (auto) 0.9 H (0-0.8) 10^3/ul Absolute Eos (auto) 0 (0-0.6) 10^3/ul Absolute Basos (auto) 0.1 (0-0.2) 10^3/ul Absolute Nucleated RBC 0 10^3/ul Nucleated RBC % 0 Sodium 131 L (133-145) mmol/L Potassium 3.8 (3.5-5.0) mmol/L Chloride 96 L (101-111) mmol/L Carbon Dioxide 26 (22-32) mmol/L Anion Gap 9 (2-11) mmol/L BUN 8 (6-24) mg/dL Creatinine 0.62 (0.51-0.95) mg/dL Est GFR ( Amer) 127.6 (>60) Est GFR (Non-Af Amer) 99.2 (>60) BUN/Creatinine Ratio 12.9 (8-20) Glucose 124 H (70-100) mg/dL Calcium 9.2 (8.6-10.3) mg/dL Magnesium 1.7 L (1.9-2.7) mg/dL Total Bilirubin 0.70 (0.2-1.0) mg/dL AST 29 (13-39) U/L ALT 18 (7-52) U/L Alkaline Phosphatase 95 (34-104) U/L Total Protein 6.6 (6.4-8.9) g/dL Albumin 3.4 (3.2-5.2) g/dL Globulin 3.2 (2-4) g/dL Albumin/Globulin Ratio 1.1 (1-3) Result Diagrams: 09/15/16 09:22 09/15/16 09:22 Lab Statement: Any lab studies that have been ordered have been reviewed, and results considered in the medical decision making process. - EKG 0845 Cardiac Rate: Tachycardia EKG Rhythm: Sinus Tachycardia ST Segment: Normal EKG Interpretation: Poor R-wave progression. LAFB Chest Pain Course/Dx - Course Course Of Treatment: This 55 y/o female presents to ED for chest pressure and tightness that is worse with deep breath and lying down. Pain started gradually since 6 days ago. PMHx is significant for breast CA s/p left lumpectomy and mets to T-spine and lymphatic as well as pericardial and pleural effusion with pericardial windown and pleurX in place. PleurX is in place on left laterla chest. Pt was last drained of fluid 6 days ago and has another pending drainage scheduled tomorrow, but decided to visit ED today when she became concerned about the gradually worsening and persistent pain. Plan of care is discussed with pt. She states that pain is similar to previous episode with last effusion and is reluctant to have CXR and pain medications. Dr. Umanzor was consulted for plan of care, and agrees with PleurX drainage in ER. - Chest Pain Differential Diagnosis/HQI/PQRI: Other: - pleural effusion, metastatic breast cancer - Diagnoses Provider Diagnoses: Pleural effusion, Metastasis from breast cancer - Provider Notifications Discussed Care Of Patient With: Dr. Umanzor (Oncology) at 0852 AM -- Will drian PleurX on left lateral chest. Dr. Ochoa (Surgery) at 0930 AM -- will perform drainage in ED. Discharge - Discharge Plan Condition: Stable Disposition: HOME Patient Education Materials: Pleural Effusion (ED) Referrals: Ruby Montelongo MD [Primary Care Provider] - 2 Days The documentation as recorded by the Nilson luna Soohyun accurately reflects the service I personally performed and the decisions made by me, Lake Barton MD.
--- NOTE | 2016-09-15 20:14 | CONS ---
CONSULTATION REPORT: DATE OF CONSULT: 09/15/16 - EMERGENCY DEPT HISTORY: The patient is a 55-year-old female known to me with metastatic breast cancer with pleural and pericardial disease who has an indwelling Pleurx catheter and feels like she has has increasing pressure in her left chest, needs a left chest drain, but does not have any more of the drainage bottles at home. On examination, she appears reasonably bright and energetic and has obvious recurrent malignancy in her anterior left chest but no dyspnea. Breath sounds are somewhat decreased on the left side. After discussion with her, it was decided that the Pleurx catheter will be drained using sterile technique. It was hooked to the suction bottle and about 500 mL of clear yellow fluid was forthcoming, at which time she started to cough and feel pressure in the chest, so the suction was discontinued. She tolerated this well. The catheter was re- bandaged and I spoke with Dr. Lake Barton and he will be discharging the patient. CC: Bora Ochoa MD; Yue Umanzor MD * [id number]/[facility] #: [id number] [facility]IT[facility]
== END 2016-09-15 12:30 | disposition home or self-care (01) ==
LOC: ED 08:13
DX: J90 Pleural effusion, not elsewhere classified (principal); Z87.891 Personal history of nicotine dependence; C50.919 Malignant neoplasm of unspecified site of unspecified female breast; C77.9 Secondary and unspecified malignant neoplasm of lymph node, unspecified; I10 Essential (primary) hypertension
CPT/HCPCS: 32554; 36415; 80053; 83735; 85025; 93005; 99282; J1642

== ENCOUNTER 2016-09-17 06:52 | Emergency (ER) | payer OTHER ==
[2016-09-17] MEDS ORDERED: NS 0.9% 1000 ML* 1,000 ML IV SCH (07:15)
[2016-09-17 08:14] LABS: Hematocrit 40 % (35-47); Mean Corpuscular HGB Conc 33 g/dl (31-36); Mean Corpuscular Hemoglobin 27 pg (27-31); Mean Corpuscular Volume 82 fL (80-97); Mean Platelet Volume 7 um3 (7.4-10.4); Red Blood Count 4.89 10^6/ul (4.0-5.4); Red Cell Distribution Width 18 % (10.5-15); White Blood Count 11.2 10^3/ul (3.5-10.8)
[2016-09-17 08:32] LABS: Albumin 3.2 g/dL (3.2-5.2); BUN/Creatinine Ratio 9.3 (8-20); C Reactive Protein 8.31 mg/L (< 5.00); Calcium 8.9 mg/dL (8.6-10.3); EGFR African American 149.7 (>60); EGFR Non-African American 116.4 (>60); Globulin 3.1 g/dL (2-4); Magnesium 1.6 mg/dL (1.9-2.7); Potassium 3.8 mmol/L (3.5-5.0); Total Bilirubin 0.6 mg/dL (0.2-1.0); Total Protein 6.3 g/dL (6.4-8.9)
[2016-09-17 08:35] LABS: Troponin I 0.02 ng/mL (<0.04)
[2016-09-17] MEDS ORDERED: Meclizine TAB* 12.5 MG PO ONE (08:47)
[2016-09-17] MEDS ORDERED: Magnesium Sulfate 2 GM IV* 2 GM/50 ML BAG IVPB ONE (08:47)
[2016-09-17] MEDS ORDERED: Ondansetron INJ* 2 MG/ML VIAL IV ONE (08:47)
[2016-09-17 10:19] LABS: Urine Bilirubin Negative (Negative); Urine Glucose Negative (Negative); Urine Nitrite Negative (Negative)
[2016-09-17 11:28] LABS: TSH (Thyroid Stimulating Horm) 2.91 mcIU/mL (0.34-5.60)
--- NOTE | 2016-09-17 11:33 | ECHO ---
Patient: CANDELARIA BRICENO [facility] Rec#: [id number] : 1960 Date: 09/17/2016 Age: 55y Height: 162.56 cm / 64.0 in Weight: 53.52 kg / 118.0 lbs Sex: F BSA: 1.56 Room#: 17 Admit Date#: 09/17/2016 Type: Outpatient Referring: Con Squires MD Reading: Nahun Becerril MD Dye Blender: Isha PhamRD,RDMS Transthoracic Echocardiogram Indication: SOB, CP BP: 121/93 HR: 113 Rhythm: Tachycardia Indications Shortness of Breath Findings History: Metastatic breast cancer, chemotherapy, malignant pleural effusion, pericardial effusion Technical Comments: The study quality is fair. Completed 1015 Left Ventricle: The left ventricular chamber size is decreased. There is no left ventricular hypertrophy. There is a focal wall motion abnormality present.Paradoxical septal motion is noted. There is normal left ventricular systolic function. The estimated ejection fraction is 60-65%. Left Atrium: The left atrial chamber size is normal. Right Ventricle: The right ventricle wall thickness is moderately increased. The right ventricular cavity size is normal. The right ventricular global systolic function is mildly reduced. Right Atrium: The right atrial cavity size is normal. Aortic Valve: There is no evidence of aortic valve thickening. Systolic excursion of the aortic valve is normal. There is no evidence of aortic regurgitation. There is no evidence of aortic stenosis. Mitral Valve: The mitral valve leaflets appear normal. There is no evidence of mitral regurgitation. There is no evidence of mitral stenosis. Tricuspid Valve: The tricuspid valve leaflets are normal. There is trace tricuspid regurgitation. Unable to estimate the right ventricular systolic pressure. Pulmonic Valve: There is no evidence of pulmonic valve thickening. There is a trace pulmonic regurgitation. Pericardium: There is a small pericardial effusion. There are no signs of significant hemodynamic compromise. The pericardial effusion is seen adjacent to the right ventricle.In certain views there appears to be a mass (1.5 x 2.2 cm) adjacent to the RV apex. This may be intrapleural. A left pleural effusion is present. There is a moderate pleural effusion. Aorta: The ascending aorta is not well visualized. There is no dilatation of the aortic arch. The aortic root is normal in size. Pulmonary Artery: The main pulmonary artery is not well visualized. Venous: The inferior vena cava is dilated. There is less than 50% respiratory change in the inferior vena cava dimension. Conclusions There is normal left ventricular systolic function. There is a focal wall motion abnormality present.Paradoxical septal motion is noted. The estimated ejection fraction is 60-65%. The right ventricle wall thickness is moderately increased. The right ventricular global systolic function is mildly reduced. There is trace tricuspid regurgitation. Unable to estimate the right ventricular systolic pressure. A left pleural effusion is present. There is a moderate pleural effusion. There is a small pericardial effusion. The pericardial effusion is seen adjacent to the right ventricle.In certain views there appears to be a mass (1.5 x 2.2 cm) adjacent to the RV apex. This may be intrapleural. Compared to report of prior study from 08/23/2016 the pleural effusion is new as is the small amount of fluid anterior to the RV. The questionable mass seen now mentioned was not commented on in prior report. The abnormal septal motion was noted raising the issue of effusive constrictve disease as mentioned before. CT correlation may be helpful. Measurements Name Value Normal Range RVIDd (AP) 2D 2.4 cm (0.9 - 2.6) IVSd (2D) 0.8 cm (0.6 - 1) LVPWd (2D) 0.9 cm (0.6 - 1) LVIDd (2D) 2.5 cm (3.6 - 5.4) LVIDs (2D) 1.6 cm - LV FS (2D) 37 % (25 - 45) Aortic Annulus 1.9 cm (1.4 - 2.6) Ao root diameter (2D) 2.7 cm (2.1 - 3.5) Aortic arch 3 cm (1.8 - 3.4) LA dimension (AP) 2D 2.2 cm (2.3 - 3.8) Name Value Normal Range MV E-wave Vmax 0.9 m/sec - MV deceleration time 93 msec - MV A-wave Vmax 0.5 m/sec - MV E:A ratio 1.8 ratio - LV septal e' Vmax 0.07 m/sec - LV lateral e' Vmax 0.05 m/sec - LV E:e' septal ratio 13 ratio - LV E:e' lateral ratio 18 ratio - Name Value Normal Range AV Vmax 1.2 m/sec - AV VTI 19.3 cm - AV peak gradient 6 mmHg - AV mean gradient 3.7 mmHg - LVOT Vmax 1.1 m/sec - LVOT VTI 17 cm - LVOT peak gradient 5 mmHg - LVOT mean gradient 2.6 mmHg - LIV Vmax 0.6 m/sec - Name Value Normal Range RAP 8 mmHg - IVC diameter 2.4 cm - Name Value Normal Range PV Vmax 0.9 m/sec - PV peak gradient 3.2 mmHg -
[2016-09-17] MEDS ORDERED: NS 0.9% 1000 ML* 1,000 ML IV ONE (14:13)
[2016-09-17] MEDS ORDERED: Diazepam TAB(*) 5 MG PO ONE (14:15)
[2016-09-17] MEDS ORDERED: PROCHLORPERAZINE INJ 5 MG/ML 2 ML VIAL IV ONE (14:15)
[2016-09-17] MEDS ORDERED: Diazepam TAB(*) 5 MG ONE (14:17)
[2016-09-17] MEDS ORDERED: PROCHLORPERAZINE INJ 5 MG/ML 2 ML VIAL ONE (14:17)
--- NOTE | 2016-09-17 14:25 | ED ---
Lambert Barrgaan Auryana, scribed for Con Squires MD on 09/17/16 at 0852 . HPI Chest Pain - HPI Summary HPI Summary: 55 year old female presents with intermittent chest pressure starting several weeks ago becoming progressively worse since then. She reports that she has had increase pain (over the last few weeks), dry mouth, dry heaving, dizziness- spinning, and pain on inspiration. She states that she has been unable to sleep due to her symptoms. She called Dr. Garcia - recommended an Echo - and gave option to come to office or ED. She had an outpatient CXR done yesterday - significant for increased pleural effusions. She reports that she was supposed to take oral chemotherapy yesterday but did not due to inability to hold food down. PMHx is significant for breast cancer, and pericardial/pleural effusion with 'window'. She is prescribed a 25 mg Fentanyl patch. - History of Current Complaint Chief Complaint: EDChestPainROMI Time Seen by Provider: 09/17/16 08:21 Hx Obtained From: Patient, Family/Plastic Surgery Nurse - Onset/Duration: Started Weeks Ago, Atraumatic, Still Present, Worse Since Timing: Constant Initial Severity: Mild Current Severity: Moderate Pain Intensity: 5 Pain Scale Used: 0-10 Numeric Chest Pain Location: Diffuse Chest Pain Radiates: No Character: Pressure/Squeezing Associated Signs and Symptoms: Positive: Dizziness - spinning, Other: - pain on inspiration, dry mouth, dry heaving Related History: Similar Episode/Dx as: - see HPI - Additional Pertinent History Primary Care Physician: VITO - Allergy/Home Medications Allergies/Adverse Reactions: Allergies Allergy/AdvReac Type Severity Reaction Status Date / Time Antihistamines, Allergy Severe Rash Verified 08/22/16 07:12 Diphenhydramine-typ Tramadol AdvReac Intermediate Vomiting Verified 08/22/16 07:12 narcotics AdvReac Intermediate Nausea And Uncoded 08/22/16 07:12 Vomiting PMH/Surg Hx/FS Hx/Imm Hx Endocrine/Hematology History: Reports: Hx Thyroid Disease - STATES BLOOD WORK SHOWS SLIGHTLY OFF, TAKES OTC SUPPLEMENT Denies: Hx Diabetes Cardiovascular History: Reports: Other Cardiovascular Problems/Disorders - PERICARDIUM WINDOW: TO DRAIN EXCESS FLUID Denies: Hx Hypertension, Hx Pacemaker/ICD Respiratory History: Reports: Other Respiratory Problems/Disorders - FLUID REMOVED FROM LEFT LUNG X2 WEEKS AGO GI History: Reports: Hx Irritable Bowel - FEELS SHE HAS IBS, HAS NOT BEEN DX BY A PHYSICIAN, Other GI Disorders - DOES COFFEE ENEMAS DAILY, appedectomy History: Reports: Other Problems/Disorders - many UTI's Denies: Hx Renal Disease - ONE KIDNEY IS SMALLER THAN THE OTHER Musculoskeletal History: Reports: Hx Arthritis, Other Musculoskeletal History - USES LOTS OF SUPPLEMENTS TO PREVENT CRAMPING OF MUSCLES Sensory History: Denies: Hx Cataracts, Hx Contacts or Glasses, Hx Glaucoma, Hx Hearing Aid Opthamlomology History: Denies: Hx Cataracts, Hx Contacts or Glasses, Hx Glaucoma Neurological History: Reports: Hx Headaches - R/T CAFFINE, Hx Migraine - CAUSED BY ANTIHYSTAMINES, Other Neuro Impairments/Disorders - neuropathy, FINGERS/FEET Psychiatric History: Reports: Hx Anxiety - SITUATIONAL, Hx Depression Denies: Hx Panic Disorder - Cancer History Cancer Type, Location and Year: Stage 4 Breast cancer - 03/2011- under treatment with Dr Radha Daly Chemotherapy: Yes Hx Radiation Therapy: No - Surgical History Surgery Procedure, Year, and Place: [place] [facility] [place] [facility] [place] [facility] [place] BUNIONECTOMY [place]. LEFT KNEE ATHROSCOPY. D&C,. RT BREAST WOUND ,. 2014 PERICARDIAL WINDOW TO PERITONIUM Hx Anesthesia Reactions: Yes - ALWAYS GET N&V, DIZZY Infectious Disease History: No Infectious Disease History: Denies: Hx of Known/Suspected MRSA, History Other Infectious Disease, Traveled Outside the [place] in Last 30 Days - Family History Known Family History: Negative: Other - negative malignant hyperthermia or adverse anesthesia reaction - Social History Occupation: Unemployed Lives: With Family Alcohol Use: Occasionally Substance Use Type: Reports: Marijuana Substance Use Comment - Amount & Last Used: MOST NIGHTS SMOKES MARIJANA TO RELIEVE PAIN, WILL REFRAIN 2-3 NIGHTS PREOP Hx Tobacco Use: Yes Smoking Status (MU): Former Smoker Type: Cigarettes Amount Used/How Often: 1979 2 YRS 1PPD Length of Time of Smoking/Using Tobacco: 3 years Have You Smoked in the Last Year: No Review of Systems Constitutional: Negative Negative: Fever Eyes: Negative ENT: Negative Positive: Chest Pain - chest pressure Positive: Other - pain with inspiraition Positive: Vomiting - dry heaves, Other - dry mouth Genitourinary: Negative Positive: Other - increased pain Skin: Negative Neurological: Negative Psychological: Normal All Other Systems Reviewed And Are Negative: Yes Physical Exam Triage Information Reviewed: Yes Vital Signs On Initial Exam: Initial Vitals Temp Pulse Resp BP Pulse Ox 99.0 F 122 20 121/93 97 09/17/16 07:27 09/17/16 07:27 09/17/16 07:27 09/17/16 07:27 09/17/16 07:27 Vital Signs Reviewed: Yes Appearance: Positive: No Pain Distress, Cachectic Skin: Positive: Warm, Skin Color Reflects Adequate Perfusion, Dry Head/Face: Positive: Normal Head/Face Inspection Eyes: Positive: EOMI, DUNCAN ENT: Positive: Normal ENT inspection Neck: Positive: Supple, Nontender Respiratory/Lung Sounds: Positive: Clear to Auscultation, Breath Sounds Present Cardiovascular: Positive: RRR. Negative: Leg Edema Left, Leg Edema Right Abdomen Description: Positive: Nontender, Soft Bowel Sounds: Positive: Present Musculoskeletal: Positive: Normal, Strength/ROM Intact. Negative: Edema Left, Edema Right Neurological: Positive: Normal, Sensory/Motor Intact, Alert, Oriented to Person Place, Time Psychiatric: Positive: Affect/Mood Appropriate - Harry Coma Scale Coma Scale Total: 15 Diagnostics - Vital Signs Vital Signs Temp Pulse Resp BP Pulse Ox 09/17/16 07:27 99.0 F 122 16 121/93 97 - Laboratory Lab Results: Lab Results 09/17/16 Range/Units 08:00 WBC 11.2 H (3.5-10.8) 10^3/ul RBC 4.89 (4.0-5.4) 10^6/ul Hgb 13.0 (12.0-16.0) g/dl Hct 40 (35-47) % MCV 82 (80-97) fL MCH 27 (27-31) pg MCHC 33 (31-36) g/dl RDW 18 H (10.5-15) % Plt Count 243 (150-450) 10^3/ul MPV 7 L (7.4-10.4) um3 Neut % (Auto) 86.4 H (38-83) % Lymph % (Auto) 7.5 L (25-47) % [place] % (Auto) 5.3 (1-9) % Eos % (Auto) 0.1 (0-6) % Baso % (Auto) 0.7 (0-2) % Absolute Neuts (auto) 9.7 H (1.5-7.7) 10^3/ul Absolute Lymphs (auto) 0.8 L (1.0-4.8) 10^3/ul Absolute Monos (auto) 0.6 (0-0.8) 10^3/ul Absolute Eos (auto) 0 (0-0.6) 10^3/ul Absolute Basos (auto) 0.1 (0-0.2) 10^3/ul Absolute Nucleated RBC 0 10^3/ul Nucleated RBC % 0 Result Diagrams: 09/17/16 08:00 09/17/16 08:00 Lab Statement: Any lab studies that have been ordered have been reviewed, and results considered in the medical decision making process. - EKG 06:59 Cardiac Rate: Tachycardia EKG Rhythm: Sinus Tachycardia EKG Interpretation: sinus tachycardia @ 110 BPM, no ectopy, flipped T waves in V1,V2, lead III - Additional Comments Diagnostic Additional Comments: Transthoracic Echocardiogram Technical Comments: The study quality is fair. Completed 1015 Left Ventricle: The left ventricular chamber size is decreased. There is no left ventricular hypertrophy. There is a focal wall motion abnormality present.Paradoxical septal motion is noted. There is normal left ventricular systolic function. The estimated ejection fraction is 60-65%. Left Atrium: The left atrial chamber size is normal. Right Ventricle: The right ventricle wall thickness is moderately increased. The right ventricular cavity size is normal. The right ventricular global systolic function is mildly reduced. Right Atrium: The right atrial cavity size is normal. Aortic Valve: There is no evidence of aortic valve thickening. Systolic excursion of the aortic valve is normal. There is no evidence of aortic regurgitation. There is no evidence of aortic stenosis. Mitral Valve: The mitral valve leaflets appear normal. There is no evidence of mitral regurgitation. There is no evidence of mitral stenosis. Tricuspid Valve: The tricuspid valve leaflets are normal. There is trace tricuspid regurgitation. Unable to estimate the right ventricular systolic pressure. Pulmonic Valve: There is no evidence of pulmonic valve thickening. There is a trace pulmonic regurgitation. Pericardium: There is a small pericardial effusion. There are no signs of significant hemodynamic compromise. The pericardial effusion is seen adjacent to the right ventricle.In certain views there appears to be a mass (1.5 x 2.2 cm) adjacent to the RV apex. This may be intrapleural. A left pleural effusion is present. There is a moderate pleural effusion. Aorta: The ascending aorta is not well visualized. There is no dilatation of the aortic arch. The aortic root is normal in size. Pulmonary Artery: The main pulmonary artery is not well visualized. Venous: The inferior vena cava is dilated. There is less than 50% respiratory change in the inferior vena cava dimension. Conclusions There is normal left ventricular systolic function. There is a focal wall motion abnormality present.Paradoxical septal motion is noted. The estimated ejection fraction is 60-65%. The right ventricle wall thickness is moderately increased. The right ventricular global systolic function is mildly reduced. There is trace tricuspid regurgitation. Unable to estimate the right ventricular systolic pressure. A left pleural effusion is present. There is a moderate pleural effusion. There is a small pericardial effusion. The pericardial effusion is seen adjacent to the right ventricle.In certain views there appears to be a mass (1.5 x 2.2 cm) adjacent to the RV apex. This may be intrapleural. Compared to report of prior study from 08/23/2016 the pleural effusion is new as is the small amount of fluid anterior to the RV. The questionable mass seen now mentioned was not commented on in prior report. The abnormal septal motion was noted raising the issue of effusive constrictve disease as mentioned before. CT correlation may be helpful. Measurements Name Value Normal Range RVIDd (AP) 2D 2.4 cm (0.9 - 2.6) IVSd (2D) 0.8 cm (0.6 - 1) LVPWd (2D) 0.9 cm (0.6 - 1) LVIDd (2D) 2.5 cm (3.6 - 5.4) LVIDs (2D) 1.6 cm - LV FS (2D) 37 % (25 - 45) Aortic Annulus 1.9 cm (1.4 - 2.6) Ao root diameter (2D) 2.7 cm (2.1 - 3.5) Aortic arch 3 cm (1.8 - 3.4) LA dimension (AP) 2D 2.2 cm (2.3 - 3.8) Name Value Normal Range MV E-wave Vmax 0.9 m/sec - MV deceleration time 93 msec - MV A-wave Vmax 0.5 m/sec - MV E:A ratio 1.8 ratio - LV septal e' Vmax 0.07 m/sec - LV lateral e' Vmax 0.05 m/sec - LV E:e' septal ratio 13 ratio - LV E:e' lateral ratio 18 ratio - Name Value Normal Range AV Vmax 1.2 m/sec - AV VTI 19.3 cm - AV peak gradient 6 mmHg - AV mean gradient 3.7 mmHg - LVOT Vmax 1.1 m/sec - LVOT VTI 17 cm - LVOT peak gradient 5 mmHg - LVOT mean gradient 2.6 mmHg - LIV Vmax 0.6 m/sec - Name Value Normal Range RAP 8 mmHg - IVC diameter 2.4 cm - Name Value Normal Range PV Vmax 0.9 m/sec - PV peak gradient 3.2 mmHg - Re-Evaluation - Re-Evaluation First Eval Re-Evaluation Time: 13:45 - dicuss labs, imaging, and plan to admit Chest Pain Course/Dx - Course Course Of Treatment: NO CRITICAL CARE TIME Assessment/Plan: DISCUSSED RESULTS WITH PATIENT//DR GARCIA. DISCHARGE HOME STABLE. - Diagnoses Provider Diagnoses: Chest pain, Dyspnea, Pleural effusion, Nausea & vomiting, Anxiety, Dizziness - Provider Notifications Discussed Care Of Patient With: Dr. Garcia Time Discussed With Above Provider: 13:53 - DISCUSSED PATIENT- discharge home Discharge - Discharge Plan Condition: Stable Disposition: HOME Prescriptions: Diazepam TAB(*) [Valium TAB(*)] 5 mg PO TID PRN #15 tab MDD 3 PRN Reason: Anxiety Meclizine HCl [Meclizine 25] 25 mg PO Q6HR PRN #15 tab PRN Reason: Dizziness Patient Education Materials: Chest Pain (ED), Pleural Effusion (ED), Dyspnea ( ED), Anxiety (ED), Chemo Induced Nausea and Vomiting (ED), Dizziness (ED) Referrals: Ruby Montelongo MD [Primary Care Provider] - Additional Instructions: FOLLOW UP WITH YOUR DOCTOR, DR GARCIA, THIS WEEK. RETURN TO THE EMERGENCY DEPARTMENT FOR ANY WORSENING OF YOUR CONDITION; PAIN, SHORTNESS OF BREATH, YOU FEEL ILL OR QUESTIONS OR CONCERNS. The documentation as recorded by the Lambert luna Auryana accurately reflects the service I personally performed and the decisions made by , Con Squires MD.
[2016-09-17 14:59] VITALS: BP 130/84
== END 2016-09-17 16:19 | disposition home or self-care (01) ==
LOC: ED 06:52
DX: J90 Pleural effusion, not elsewhere classified (principal); R42 Dizziness and giddiness; R06.00 Dyspnea, unspecified; R07.9 Chest pain, unspecified; R11.2 Nausea with vomiting, unspecified; F41.9 Anxiety disorder, unspecified
CPT/HCPCS: 36415; 80053; 81003; 82550; 82553; 83605; 83735; 83880; 84443; 84484; 85025; 85610; 85730; 86140; 93005; 93306; 96365; 96375; 99284; A9270-GY; J0780; J2405

== ENCOUNTER 2016-09-24 13:18 | Emergency (ER) | payer OTHER ==
[2016-09-24 14:22] VITALS: BP 101/70
[2016-09-24] MEDS ORDERED: NS 0.9% 1000 ML* 1,000 ML IV ONE (14:56)
[2016-09-24 16:18] LABS: Hematocrit 40 % (35-47); Hemoglobin 13.2 g/dl (12.0-16.0); Mean Corpuscular HGB Conc 33 g/dl (31-36); Mean Corpuscular Hemoglobin 27 pg (27-31); Mean Corpuscular Volume 82 fL (80-97); Mean Platelet Volume 7 um3 (7.4-10.4); Red Blood Count 4.79 10^6/ul (4.0-5.4); Red Cell Distribution Width 20 % (10.5-15); White Blood Count 10.3 10^3/ul (3.5-10.8)
[2016-09-24] MEDS ORDERED: Diazepam SYRINGE* 5 MG/ML SYRINGE IV ONE (16:41)
[2016-09-24 16:42] LABS: Albumin 3.2 g/dL (3.2-5.2); BUN/Creatinine Ratio 21.8 (8-20); C Reactive Protein 5.01 mg/L (< 5.00); Calcium 8.7 mg/dL (8.6-10.3); EGFR African American 146.5 (>60); EGFR Non-African American 113.9 (>60); Globulin 2.9 g/dL (2-4); Magnesium 1.7 mg/dL (1.9-2.7); Potassium 3.8 mmol/L (3.5-5.0); Total Bilirubin 1.4 mg/dL (0.2-1.0); Total Protein 6.1 g/dL (6.4-8.9)
[2016-09-24 16:43] LABS: Troponin I 0.03 ng/mL (<0.04)
[2016-09-24] MEDS ORDERED: Meclizine TAB* 12.5 MG PO ONE (18:13)
--- NOTE | 2016-09-25 14:25 | ED ---
Best Barragan Anna, scribed for Ndubuisi,Vikram Rose MD on 09/24/16 at 1551 . GI/ HPI - HPI Summary HPI Summary: Patient is a 55 y/o female coming to [facility] presenting with nausea that began last night. She describes the severity of the symptoms as 8/10. The patient started a new oral chemotherapy treatment last night for stage IV breast ca, being managed by oncologist Dr. Garcia. Since then, she has been dry heaving and reports feeling SOB. She additionally reports feeling weak. Denies fever. . Patient medications were reviewed this visit. - History of Current Complaint Chief Complaint: EDNauseaVomitDiarrh Time Seen by Provider: 09/24/16 14:47 Stated Complaint: NAUSEA Hx Obtained From: Patient Onset/Duration: Started Hours Ago, Still Present Severity: Moderate Current Severity: Moderate Pain Intensity: 8 - /10 - Additional Pertinent History Primary Care Physician: VITO - Allergy/Home Medications Allergies/Adverse Reactions: Allergies Allergy/AdvReac Type Severity Reaction Status Date / Time Antihistamines, Allergy Severe Rash Verified 08/22/16 07:12 Diphenhydramine-typ Tramadol AdvReac Intermediate Vomiting Verified 08/22/16 07:12 narcotics AdvReac Intermediate Nausea And Uncoded 08/22/16 07:12 Vomiting PMH/Surg Hx/FS Hx/Imm Hx Endocrine/Hematology History: Reports: Hx Thyroid Disease - STATES BLOOD WORK SHOWS SLIGHTLY OFF, TAKES OTC SUPPLEMENT Denies: Hx Diabetes Cardiovascular History: Reports: Other Cardiovascular Problems/Disorders - PERICARDIUM WINDOW: TO DRAIN EXCESS FLUID Denies: Hx Hypertension, Hx Pacemaker/ICD Respiratory History: Reports: Other Respiratory Problems/Disorders - FLUID REMOVED FROM LEFT LUNG X2 WEEKS AGO GI History: Reports: Hx Irritable Bowel - FEELS SHE HAS IBS, HAS NOT BEEN DX BY A PHYSICIAN, Other GI Disorders - DOES COFFEE ENEMAS DAILY, appedectomy History: Reports: Other Problems/Disorders - many UTI's Denies: Hx Renal Disease - ONE KIDNEY IS SMALLER THAN THE OTHER Musculoskeletal History: Reports: Hx Arthritis, Other Musculoskeletal History - USES LOTS OF SUPPLEMENTS TO PREVENT CRAMPING OF MUSCLES Sensory History: Denies: Hx Cataracts, Hx Contacts or Glasses, Hx Glaucoma, Hx Hearing Aid Opthamlomology History: Denies: Hx Cataracts, Hx Contacts or Glasses, Hx Glaucoma Neurological History: Reports: Hx Headaches - R/T CAFFINE, Hx Migraine - CAUSED BY ANTIHYSTAMINES, Other Neuro Impairments/Disorders - neuropathy, FINGERS/FEET Psychiatric History: Reports: Hx Anxiety - SITUATIONAL, Hx Depression Denies: Hx Panic Disorder - Cancer History Cancer Type, Location and Year: Stage 4 Breast cancer - 03/2011- under treatment with Dr Rahda pierre to t-spine, lymph Hx Chemotherapy: Yes Hx Radiation Therapy: No - Surgical History Surgery Procedure, Year, and Place: 2008 RUPTURED Appendectomy [facility] [place]. 2011 POWER PORT RT SIDE [facility] [place]. 2012 EXPLORATORY FOR PAIN AFTER APPY [facility] [place]. 1979 BUNIONECTOMY [place]. LEFT KNEE ATHROSCOPY. D&C,. RT BREAST WOUND ,. 2014 PERICARDIAL WINDOW TO PERITONIUM Hx Anesthesia Reactions: Yes - ALWAYS GET N&V, DIZZY Infectious Disease History: No Infectious Disease History: Denies: Hx of Known/Suspected MRSA, History Other Infectious Disease, Traveled Outside the in Last 30 Days - Family History Known Family History: Negative: Other - negative malignant hyperthermia or adverse anesthesia reaction - Social History Alcohol Use: Occasionally Substance Use Type: Reports: Marijuana Substance Use Comment - Amount & Last Used: MOST NIGHTS SMOKES MARIJANA TO RELIEVE PAIN Hx Tobacco Use: Yes Smoking Status (MU): Former Smoker Type: Cigarettes Amount Used/How Often: 1979 2 YRS 1PPD Length of Time of Smoking/Using Tobacco: 3 years Have You Smoked in the Last Year: No Review of Systems Negative: Fever Positive: Shortness Of Breath Positive: Vomiting, Nausea Positive: Weakness All Other Systems Reviewed And Are Negative: Yes Physical Exam Triage Information Reviewed: Yes Vital Signs On Initial Exam: Initial Vitals Temp Pulse Resp BP Pulse Ox 98.1 F 101 17 101/76 98 09/24/16 13:40 09/24/16 13:40 09/24/16 13:40 09/24/16 13:40 09/24/16 13:40 Vital Signs Reviewed: Yes Appearance: Positive: No Pain Distress, Well-Nourished, Ill-Appearing - Chronically. Ectactic. Skin: Positive: Warm, Skin Color Reflects Adequate Perfusion, Dry, Other - inflammatory skin changes from infiltration of CA. S/p left mastectomy Head/Face: Positive: Normal Head/Face Inspection Eyes: Positive: EOMI, DUNCAN, Conjunctiva Clear ENT: Positive: Pharynx normal, TMs normal Neck: Positive: Supple, Nontender Respiratory/Lung Sounds: Positive: Clear to Auscultation, Breath Sounds Present , Other - Crackles left base. Negative: Rhonchi, Wheezes Cardiovascular: Positive: RRR, S1, S2. Negative: Murmur, Rub, Other - no gallops Abdomen Description: Positive: Nontender, Soft, Distended - mildly distended with fluid wave. Negative: Guarding, Other: - no rebound Bowel Sounds: Positive: Present Musculoskeletal: Positive: Strength/ROM Intact, Edema Left - Edema of left upper extremity Neurological: Positive: Normal, Sensory/Motor Intact, Alert, Oriented to Person Place, Time. Negative: Cerebellar Dysfunction Psychiatric: Positive: Affect/Mood Appropriate Diagnostics - Vital Signs Vital Signs Temp Pulse Resp BP Pulse Ox 09/24/16 14:21 98.2 F 103 16 101/70 97 09/24/16 13:40 98.1 F 101 17 101/76 98 - Laboratory Lab Results: Lab Results 09/24/16 09/24/16 09/24/16 Range/Units 16:03 16:03 16:03 WBC 10.3 (3.5-10.8) 10^3/ul RBC 4.79 (4.0-5.4) 10^6/ul Hgb 13.2 (12.0-16.0) g/dl Hct 40 (35-47) % MCV 82 (80-97) fL MCH 27 (27-31) pg MCHC 33 (31-36) g/dl RDW 20 H (10.5-15) % Plt Count 252 (150-450) 10^3/ul MPV 7 L (7.4-10.4) um3 Neut % (Auto) 79.9 (38-83) % Lymph % (Auto) 11.3 L (25-47) % [place] % (Auto) 8.0 (1-9) % Eos % (Auto) 0.1 (0-6) % Baso % (Auto) 0.7 (0-2) % Absolute Neuts (auto) 8.2 H (1.5-7.7) 10^3/ul Absolute Lymphs (auto) 1.2 (1.0-4.8) 10^3/ul Absolute Monos (auto) 0.8 (0-0.8) 10^3/ul Absolute Eos (auto) 0 (0-0.6) 10^3/ul Absolute Basos (auto) 0.1 (0-0.2) 10^3/ul Absolute Nucleated RBC 0 10^3/ul Nucleated RBC % 0 INR (Anticoag Therapy) (0.89-1.11) APTT (26.0-36.3) seconds Sodium 133 (133-145) mmol/L Potassium 3.8 (3.5-5.0) mmol/L Chloride 100 L (101-111) mmol/L Carbon Dioxide 21 L (22-32) mmol/L Anion Gap 12 H (2-11) mmol/L BUN 12 (6-24) mg/dL Creatinine 0.55 (0.51-0.95) mg/dL Est GFR ( Amer) 146.5 (>60) Est GFR (Non-Af Amer) 113.9 (>60) BUN/Creatinine Ratio 21.8 H (8-20) Glucose 80 (70-100) mg/dL Lactic Acid 0.9 (0.5-2.0) mmol/L Calcium 8.7 (8.6-10.3) mg/dL Magnesium 1.7 L (1.9-2.7) mg/dL Total Bilirubin 1.40 H (0.2-1.0) mg/dL AST 31 (13-39) U/L ALT 19 (7-52) U/L Alkaline Phosphatase 80 (34-104) U/L Total Creatine Kinase 73 (10-223) U/L Troponin I 0.03 (<0.04) ng/mL C-Reactive Protein 5.01 H (< 5.00) mg/L Total Protein 6.1 L (6.4-8.9) g/dL Albumin 3.2 (3.2-5.2) g/dL Globulin 2.9 (2-4) g/dL Albumin/Globulin Ratio 1.1 (1-3) Lipase 25 (11.0-82.0) U/L // Range/Units 16:03 WBC (3.5-10.8) 10^3/ul RBC (4.0-5.4) 10^6/ul Hgb (12.0-16.0) g/dl Hct (35-47) % MCV (80-97) fL MCH (27-31) pg MCHC (31-36) g/dl RDW (10.5-15) % Plt Count (150-450) 10^3/ul MPV (7.4-10.4) um3 Neut % (Auto) (38-83) % Lymph % (Auto) (25-47) % [place] % (Auto) (1-9) % Eos % (Auto) (0-6) % Baso % (Auto) (0-2) % Absolute Neuts (auto) (1.5-7.7) 10^3/ul Absolute Lymphs (auto) (1.0-4.8) 10^3/ul Absolute Monos (auto) (0-0.8) 10^3/ul Absolute Eos (auto) (0-0.6) 10^3/ul Absolute Basos (auto) (0-0.2) 10^3/ul Absolute Nucleated RBC 10^3/ul Nucleated RBC % INR (Anticoag Therapy) 1.00 (0.89-1.11) APTT 108.2 H* (26.0-36.3) seconds Sodium (133-145) mmol/L Potassium (3.5-5.0) mmol/L Chloride (101-111) mmol/L Carbon Dioxide (22-32) mmol/L Anion Gap (2-11) mmol/L BUN (6-24) mg/dL Creatinine (0.51-0.95) mg/dL Est GFR ( Amer) (>60) Est GFR (Non-Af Amer) (>60) BUN/Creatinine Ratio (8-20) Glucose (70-100) mg/dL Lactic Acid (0.5-2.0) mmol/L Calcium (8.6-10.3) mg/dL Magnesium (1.9-2.7) mg/dL Total Bilirubin (0.2-1.0) mg/dL AST (13-39) U/L ALT (7-52) U/L Alkaline Phosphatase (34-104) U/L Total Creatine Kinase (10-223) U/L Troponin I (<0.04) ng/mL C-Reactive Protein (< 5.00) mg/L Total Protein (6.4-8.9) g/dL Albumin (3.2-5.2) g/dL Globulin (2-4) g/dL Albumin/Globulin Ratio (1-3) Lipase (11.0-82.0) U/L Result Diagrams: 09/24/16 16:03 09/24/16 16:03 Lab Statement: Any lab studies that have been ordered have been reviewed, and results considered in the medical decision making process. Re-Evaluation - Re-Evaluation First Eval Re-Evaluation Time: 17:20 Change: Improved Comment: The patient is no longer experiencing emesis. Discussed results and plan of care with patient and family. Patient and family are agreeable with plan. GIGU Course/Dx - Course Assessment/Plan: Patient is a 55 y/o female coming to [facility] presenting with nausea that began last night. Labs reveal APTT 108.2, total bilirubin of 1.40, RDW of 20, and MPV of 7. Discussed patient care with Dr. Garcia (oncologist). Patient understands that she can stop taking the oral chemotherapy and will follow up with her oncologist. - Diagnoses Provider Diagnoses: Nausea & vomiting, Chemotherapy adverse reaction, Breast cancer, stage 4 - Physician Notifications Discussed Care Of Patient With: Dr. Garcia (oncologist) at 1718. Aware of patient 's presentation. Agreeable to plan of checking labs, electrolytes, IV hydration , disposition home if labs are fine. Discharge - Discharge Plan Condition: Stable Disposition: HOME Patient Education Materials: Chemo Induced Nausea and Vomiting (ED) Referrals: Ruby Montelongo MD [Primary Care Provider] - Josef Garcia MD [Medical Doctor] - Additional Instructions: Follow up with your oncologist within 48 hours. Return to the Emergency Department for new or worsening symptoms. The documentation as recorded by the Best luna Anna accurately reflects the service I personally performed and the decisions made by , Vikram Lewis MD.
== END 2016-09-24 20:08 | disposition home or self-care (01) ==
LOC: ED 13:18
DX: T45.1X5A Adverse effect of antineoplastic and immunosuppressive drugs, initial encounter (principal); C50.919 Malignant neoplasm of unspecified site of unspecified female breast; R11.2 Nausea with vomiting, unspecified; Z87.891 Personal history of nicotine dependence; R06.02 Shortness of breath; R53.1 Weakness
CPT/HCPCS: 36415; 80053; 82550; 83605; 83690; 83735; 84484; 85025; 85610; 85730; 86140; 96374; 99283; A9270-GY; J1642; J3360